=== PATIENT | female | born 1960 | race Caucasian/White ===

== ENCOUNTER 2023-10-16 15:48 | Emergency (ER) | payer OTHER, SELFPAY ==
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
[2023-10-16 16:06] VITALS: BP 149/91; BP 160/80; PULSE 74; PULSE 93; RESP 16; TEMP 36.4; O2SAT 96; O2SAT 98; BMI 28.3
[2023-10-16] MEDS: Ondansetron ODT 4 MG TAB.RAPDIS TRANSLINGU (16:35)
[2023-10-16 18:57] VITALS: BP 145/73; PULSE 70; RESP 19; TEMP 36.6; O2SAT 97
[2023-10-16 19:51] VITALS: BP 145/73; PULSE 70; RESP 20; TEMP 36.6; O2SAT 97
--- NOTE | 2023-10-16 19:53 | PC.NURSE ---
vital signs taken 55 minutes prior to discharge.
== END 2023-10-16 19:53 | disposition home or self-care (01) ==
PROVIDERS: Emergency Provider Student in an Organized Health Care Education/Training Program; PCP Internal Medicine
DX: S06.0X0A Concussion without loss of consciousness, initial encounter (principal); S13.4XXA Sprain of ligaments of cervical spine, initial encounter; S49.92XA Unspecified injury of left shoulder and upper arm, initial encounter; S89.81XA Other specified injuries of right lower leg, initial encounter; M54.2 Cervicalgia; R51.9 Headache, unspecified; V43.52XA Car driver injured in collision with other type car in traffic accident, initial encounter; Y93.9 Activity, unspecified; Y92.410 Unspecified street and highway as the place of occurrence of the external cause; Y99.8 Other external cause status
CPT/HCPCS: 70450; 72125; 73030; 73562; 99282; 99284